=== PATIENT | female | born 1995 | race Caucasian/White ===

== ENCOUNTER 2020-07-12 13:20 | Inpatient (IN) | payer MEDICAID, OTHER ==
[~2020-07-12] VITALS: Ht 177.8 cm; Wt 130.7 kg
[2020-07-12] VITALS (8 sets, daily range): BP systolic 114–139; BP diastolic 71–84
[2020-07-12] MEDS ORDERED: cloNIDine HCL 0.1 MG TAB PO ONE (13:45)
[2020-07-12 14:06] LABS: Urine Bacteria NONE SEEN /hpf (None Seen); Urine Blood TRACE /uL (Negative); Urine Hyaline Cast FEW /lpf (0 - 2); Urine Specific Gravity 1.024 (1.001-1.035); Urine WBC 21 /hpf (0 - 5)
[2020-07-12] MEDS ORDERED: amLODIPine BESYLATE 5 MG TAB PO ONE (15:15)
[2020-07-12] MEDS ORDERED: LABETALOL HCL 5 MG/ML 4ML SYRINGE IV ONE (17:00)
[2020-07-12 17:19] LABS: Basophils # (auto) 0.1 10 ^3/uL (0-0.2); Basophils % (auto) 0.9 % (0.0-2.0); Eosinophils # (auto) 0.2 10 ^3/uL (0-0.8); Eosinophils % (auto) 2.6 % (0.0-7.0); Monocytes # (auto) 0.7 10 ^3/uL (0-1.3); Neutrophils # (auto) 5.4 10 ^3/uL (1.6-8.6); White Blood Cell 8.7 10^3/uL (4.4-10.8)
[2020-07-12 17:21] LABS: Hematocrit 50.9 % (36.0-46.0); Lymphocytes # (auto) 2.3 10 ^3/uL (0.4-5.4); Lymphocytes % (auto) 26.1 % (10.0-50.0); Mean Corpuscular Hemoglobin 27.6 pg (28.0-32.0); Mean Corpuscular Hgb Conc. 33.4 g/dL (32.0-36.0); Mean Corpuscular Volume 82.6 fL (80.0-100.0); Monocytes % (auto) 8.5 % (0.0-12.0); Neutrophils % (auto) 61.9 % (37.0-80.0); Nucleated Red Blood Cells % 0.4 %; Platelet Count (auto) 274 10^3/uL (140-450); Red Blood Cells 6.16 10^6/uL (4.0-5.20); Red Cell Distribution Width 15.2 % (11.8-14.3)
[2020-07-12 17:27] LABS: Albumin 3.6 g/dL (3.4-5.0); Anion Gap 6 (5-15); Carbon Dioxide 27 mmol/L (21-32); Chloride 106 mmol/L (98-107); Glucose 85 mg/dL (74-106); Potassium 3.8 mmol/L (3.5-5.1); Sodium 139 mmol/L (136-145)
[2020-07-12 17:32] LABS: Alanine Aminotransferase 60 U/L (13-56); Alkaline Phosphatase 66 U/L (45-117); Aspartate Aminotransferase 36 U/L (15-37); BUN/Creatinine Ratio 13.7; Bilirubin, Total 0.4 mg/dL (0.2-1.0); Blood Urea Nitrogen 16 mg/dL (7-18); GFR African American 73 mL/min; GFR Non-African American 60 mL/min; Total Protein 7.6 g/dL (6.4-8.2)
[2020-07-12] MEDS ORDERED: LORazepam 2MG/ML-1ML VIAL IV ONE (17:45)
[2020-07-12] MEDS ORDERED: MORPHINE SULF INJ 2 MG/ML SYRINGE 1ML IV PRN (20:45)
[2020-07-12] MEDS ORDERED: HYDROcodone-ACET 5/325MG TAB PO PRN (20:45)
[2020-07-12] MEDS ORDERED: NITROGLYCERIN 0.4 MG SL TAB SL PRN (20:45)
[2020-07-12] MEDS: levoFLOXacin 500MG 100 ML IV SCH (21:29)
[2020-07-12] MEDS: METOPROLOL TARTRATE 25 MG TAB PO SCH ×2 (21:30→22:00)
[2020-07-12] MEDS: FUROSEMIDE 40 MG TAB PO SCH (21:30)
[2020-07-12] MEDS: POTASSIUM CHL 10 Meq TABLET PO SCH (21:30)
[2020-07-12] MEDS: ACETAMINOPHEN 325 MG TAB PO PRN (21:33)
[2020-07-13] VITALS (18 sets, daily range): BP systolic 97–166; BP diastolic 51–110
[2020-07-13] MEDS ORDERED: ONDANSETRON HCL 4 MG/2 ML VIAL IV PRN
[2020-07-13] MEDS: ACETAMINOPHEN 325 MG TAB PO PRN (04:05)
[2020-07-13 05:51] LABS: Basophils # (auto) 0.1 10 ^3/uL (0-0.2); Basophils % (auto) 0.6 % (0.0-2.0); Eosinophils # (auto) 0.3 10 ^3/uL (0-0.8); Eosinophils % (auto) 2.9 % (0.0-7.0); Hematocrit 48.3 % (36.0-46.0); Hemoglobin 16.1 g/dL (12.2-16.2); Lymphocytes # (auto) 2.9 10 ^3/uL (0.4-5.4); Lymphocytes % (auto) 29.5 % (10.0-50.0); Mean Corpuscular Hemoglobin 27.6 pg (28.0-32.0); Mean Corpuscular Hgb Conc. 33.4 g/dL (32.0-36.0); Mean Corpuscular Volume 82.7 fL (80.0-100.0); Monocytes # (auto) 0.8 10 ^3/uL (0-1.3); Monocytes % (auto) 8.5 % (0.0-12.0); Neutrophils # (auto) 5.8 10 ^3/uL (1.6-8.6); Neutrophils % (auto) 58.5 % (37.0-80.0); Nucleated Red Blood Cells % 0.1 %; Platelet Count (auto) 268 10^3/uL (140-450); Red Blood Cells 5.84 10^6/uL (4.0-5.20); White Blood Cell 9.9 10^3/uL (4.4-10.8)
[2020-07-13 06:06] LABS: Albumin 3.1 g/dL (3.4-5.0); Calcium 8.5 mg/dL (8.5-10.1); Potassium 4.2 mmol/L (3.5-5.1)
[2020-07-13 06:10] LABS: Bilirubin, Total 0.5 mg/dL (0.2-1.0); Total Protein 6.7 g/dL (6.4-8.2)
[2020-07-13] MEDS ORDERED: FAMO-12 PO (07:18)
[2020-07-13] MEDS ORDERED: ALBUAER3 IN (07:18)
[2020-07-13] MEDS ORDERED: ASPITAB34 OR (07:23)
[2020-07-13] MEDS ORDERED: [UNRECOGNIZED DRUG - CODE] IM (07:35)
[2020-07-13] MEDS ORDERED: EXCEDRIN PO PRN (08:45)
[2020-07-13] MEDS: POTASSIUM CHL 10 Meq TABLET PO SCH (09:19)
[2020-07-13] MEDS: FUROSEMIDE 40 MG TAB PO SCH (09:19)
[2020-07-13] MEDS: METOPROLOL TARTRATE 25 MG TAB PO SCH (09:19)
[2020-07-13] MEDS: levoFLOXacin 500MG 100 ML IV SCH (09:20)
[2020-07-13] MEDS ORDERED: amLODIPine BESYLATE 5 MG TAB PO SCH (10:00)
[2020-07-13] MEDS ORDERED: METOPROLOL TARTRATE 25 MG TAB PO ONE (11:00)
[2020-07-13] MEDS ORDERED: METOPROLOL TARTRATE 25 MG TAB ONE (11:04)
[2020-07-13] MEDS ORDERED: LEVO500T31 PO (11:12)
[2020-07-13] MEDS ORDERED: MET50T PO (11:12)
[2020-07-13] MEDS ORDERED: AML5T PO (11:12)
[2020-07-13] MEDS ORDERED: METOPROLOL TARTRATE 50 MG TAB PO SCH (22:00)
== END 2020-07-13 12:30 | disposition home or self-care (01) | DRG 199 ==
LOC: ER 13:20 → TELE 20:41 → ICU CENTRL 22:31 → DOU IN ICU 07-13 00:13
PROVIDERS: ADMIT Internal Medicine; ATTEND Internal Medicine
DX: I16.1 Hypertensive emergency (principal); E66.01 Morbid (severe) obesity due to excess calories; Z68.41 Body mass index [BMI] 40.0-44.9, adult; Z20.822 Contact with and (suspected) exposure to COVID-19; G43.909 Migraine, unspecified, not intractable, without status migrainosus; N39.0 Urinary tract infection, site not specified; Z53.9 Procedure and treatment not carried out, unspecified reason; Z82.49 Family history of ischemic heart disease and other diseases of the circulatory system; Z90.13 Acquired absence of bilateral breasts and nipples; Z79.890 Hormone replacement therapy
CPT/HCPCS: 36415; 71045; 80053; 81001; 84484; 85025; 87040; 87081; 87086; 87426; 93005; 96365; 96375; G0378; J1956; J2405; J3490

== ENCOUNTER 2020-07-27 10:41 | Emergency (ER) | payer MEDICAID ==
[~2020-07-27] VITALS: Ht 177.8 cm; Wt 128.8 kg
[~2020-07-27 10:41] MED LIST: ALBUAER3 IN; AML5T PO; ASPITAB34 OR; FAMO-12 PO; LEVO500T31 PO; MET50T PO; [UNRECOGNIZED DRUG - CODE] IM
[2020-07-27 11:55] LABS: Basophils # (auto) 0.1 10 ^3/uL (0-0.2); Eosinophils # (auto) 0.3 10 ^3/uL (0-0.8); Nucleated Red Blood Cells % 0.1 %
[2020-07-27 11:57] LABS: Eosinophils % (auto) 3.6 % (0.0-7.0); Hematocrit 51.7 % (36.0-46.0); Hemoglobin 17.4 g/dL (12.2-16.2); Lymphocytes # (auto) 2.3 10 ^3/uL (0.4-5.4); Lymphocytes % (auto) 27.4 % (10.0-50.0); Mean Corpuscular Hemoglobin 27.6 pg (28.0-32.0); Mean Corpuscular Hgb Conc. 33.6 g/dL (32.0-36.0); Mean Corpuscular Volume 82.2 fL (80.0-100.0); Monocytes # (auto) 0.6 10 ^3/uL (0-1.3); Monocytes % (auto) 7.6 % (0.0-12.0); Neutrophils % (auto) 60.4 % (37.0-80.0); Platelet Count (auto) 301 10^3/uL (140-450); Red Blood Cells 6.29 10^6/uL (4.0-5.20); Red Cell Distribution Width 14.8 % (11.8-14.3); White Blood Cell 8.3 10^3/uL (4.4-10.8)
[2020-07-27 12:03] LABS: Albumin 3.6 g/dL (3.4-5.0); Anion Gap 6 (5-15); Blood Urea Nitrogen 15 mg/dL (7-18); Carbon Dioxide 27 mmol/L (21-32); Chloride 106 mmol/L (98-107); Glucose 107 mg/dL (74-106); Potassium 4.4 mmol/L (3.5-5.1); Sodium 139 mmol/L (136-145)
[2020-07-27 12:08] LABS: Alanine Aminotransferase 46 U/L (13-56); Alkaline Phosphatase 62 U/L (45-117); Aspartate Aminotransferase 27 U/L (15-37); BUN/Creatinine Ratio 13.4; Bilirubin, Total 0.4 mg/dL (0.2-1.0); GFR African American 76 mL/min; GFR Non-African American 63 mL/min; Total Protein 7.2 g/dL (6.4-8.2)
[2020-07-27] MEDS ORDERED: ASPirin 81 mg TAB PO ONE (15:15)
[2020-07-27 15:48] LABS: Beta HCG, Quantitative < 1 mlU/mL (1-3); Thyroid Stimulating Hormone 3.26 uIU/mL (0.358-3.74)
[2020-07-27 16:03] LABS: INR 1.03 (0.9-1.15)
[2020-07-27 19:25] VITALS: BP 139/92
== END 2020-07-27 19:33 | disposition home or self-care (01) ==
LOC: ER 10:41
DX: R07.89 Other chest pain (principal); I10 Essential (primary) hypertension
CPT/HCPCS: 36415; 71046; 80053; 83735; 83880; 84443; 84484; 84702; 85025; 85379; 85610; 85730; 93005

== ENCOUNTER 2020-08-22 20:12 | Emergency (ER) | payer MEDICAID ==
[~2020-08-22] VITALS: Ht 177.8 cm; Wt 127.9 kg
[2020-08-22 20:17] VITALS: BP 152/91
[2020-08-22 20:50] LABS: Basophils # (auto) 0.1 10 ^3/uL (0-0.2); Basophils % (auto) 0.6 % (0.0-2.0); Eosinophils # (auto) 0.3 10 ^3/uL (0-0.8); Eosinophils % (auto) 3.1 % (0.0-7.0); Hematocrit 46.2 % (36.0-46.0); Lymphocytes # (auto) 3.1 10 ^3/uL (0.4-5.4); Lymphocytes % (auto) 32.2 % (10.0-50.0); Mean Corpuscular Hemoglobin 28.2 pg (28.0-32.0); Mean Corpuscular Hgb Conc. 34.6 g/dL (32.0-36.0); Mean Corpuscular Volume 81.6 fL (80.0-100.0); Monocytes # (auto) 0.8 10 ^3/uL (0-1.3); Monocytes % (auto) 8.3 % (0.0-12.0); Neutrophils # (auto) 5.5 10 ^3/uL (1.6-8.6); Neutrophils % (auto) 55.8 % (37.0-80.0); Nucleated Red Blood Cells % 0.1 %; Platelet Count (auto) 291 10^3/uL (140-450); Red Blood Cells 5.66 10^6/uL (4.0-5.20); Red Cell Distribution Width 14.9 % (11.8-14.3); White Blood Cell 9.8 10^3/uL (4.4-10.8)
[2020-08-22 21:06] LABS: Urine Bacteria NONE SEEN /hpf (None Seen); Urine Blood 1+ /uL (Negative); Urine Hyaline Cast FEW /lpf (0 - 2); Urine Specific Gravity 1.021 (1.001-1.035); Urine WBC 1 /hpf (0 - 5)
[2020-08-22 21:07] LABS: Albumin 3.7 g/dL (3.4-5.0); Anion Gap 7 (5-15); Blood Urea Nitrogen 27 mg/dL (7-18); Calcium 8.9 mg/dL (8.5-10.1); Carbon Dioxide 25 mmol/L (21-32); Chloride 108 mmol/L (98-107); Glucose 113 mg/dL (74-106); Potassium 3.7 mmol/L (3.5-5.1); Sodium 140 mmol/L (136-145)
[2020-08-22 21:12] LABS: Alanine Aminotransferase 55 U/L (13-56); Alkaline Phosphatase 68 U/L (45-117); Aspartate Aminotransferase 45 U/L (15-37); Bilirubin, Total 0.2 mg/dL (0.2-1.0); GFR African American 83 mL/min; GFR Non-African American 69 mL/min; Total Protein 7.7 g/dL (6.4-8.2)
== END 2020-08-22 21:49 | disposition home or self-care (01) ==
LOC: ER 20:23
DX: R07.89 Other chest pain (principal); F41.8 Other specified anxiety disorders; I10 Essential (primary) hypertension; Z79.82 Long term (current) use of aspirin; Z79.2 Long term (current) use of antibiotics; Z79.899 Other long term (current) drug therapy
CPT/HCPCS: 36415; 80053; 81001; 83735; 84484; 85025

== ENCOUNTER → 2020-09-12 | Outpatient (CLI) | payer MEDICAID ==
[~2020-09-12] VITALS: Ht 177.8 cm; Wt 126.1 kg
== END | disposition home or self-care (01) ==
LOC: Rad HDHVI 09:24
PROVIDERS: ATTEND Internal Medicine
DX: E78.5 Hyperlipidemia, unspecified (principal); R06.02 Shortness of breath; R07.9 Chest pain, unspecified; I10 Essential (primary) hypertension; R00.0 Tachycardia, unspecified; Z82.49 Family history of ischemic heart disease and other diseases of the circulatory system
CPT/HCPCS: 78452; 93017; 96374; A9500

== ENCOUNTER → 2021-10-31 | Outpatient (CLI) | payer MEDICAID | END | disposition home or self-care (01) | LOC: Rad HDHVI 15:49 | PROVIDERS: ATTEND Internal Medicine | DX: R07.9 Chest pain, unspecified (principal); R06.02 Shortness of breath | CPT/HCPCS: 93306 ==